=== PATIENT | female | born 1955 | race Caucasian/White ===

== ENCOUNTER → 2017-07-09 | Outpatient (REF) ==
[2017-07-09 14:20] LABS: RUBELLA IgG QUALITATIVE SUSCEPTIBLE (IMMUNE)
== END ==
LOC: M LAB 12:38
DX: Z01.84 Encounter for antibody response examination (principal)

== ENCOUNTER → 2018-10-26 | Outpatient (CLI) | payer BC ==
[2018-10-26 09:11] LABS: APPEARANCE, URINE CLEAR (CLEAR); BACTERIA, URINE AUTO NEGATIVE (NEGATIVE); BILIRUBIN, URINE AUTO NEGATIVE (NEGATIVE); BLOOD, URINE BLOOD NEGATIVE (NEGATIVE); COLOR, URINE YELLOW (YELLOW); GLUCOSE, URINE (UA) AUTO NEGATIVE (NEGATIVE); KETONE, URINE AUTO NEGATIVE (NEGATIVE); LEUKOCYTE ESTERASE, URINE AUTO NEGATIVE (NEGATIVE); MUCUS, URINE SMALL (NEGATIVE); NITRITE, URINE AUTO NEGATIVE (NEGATIVE); PROTEIN, URINE AUTO NEGATIVE (NEGATIVE); RBC, URINE AUTO 1 /HPF (0-3); SPECIFIC GRAVITY URINE AUTO 1.027 (1.002-1.035); SQUAMOUS EPITHELIAL CELL UR AU 1 /HPF (0-6); WBC, URINE AUTO 2 /HPF (0-3)
[2018-10-26 09:14] LABS: ALBUMIN 3.8 GM/DL (3.2-5.2); ALT/SGPT 16 U/L (12-78); BILIRUBIN,TOTAL 0.4 MG/DL (0.2-1.0); BLOOD UREA NITROGEN 18 MG/DL (7-18); CARBON DIOXIDE LEVEL 31 MEQ/L (21-32); CHLORIDE LEVEL 105 MEQ/L (98-107); CHOLESTEROL LEVEL 276 MG/DL (<200); GLOMERULAR FILTRATION RATE > 60.0 (>45); GLUCOSE, FASTING 86 MG/DL (70-100); HDL CHOLESTEROL 75 MG/DL (>40); LDL CHOLESTEROL 176.2 MG/DL (<100); NON-HDL-C 201 MG/DL; POTASSIUM SERUM 3.8 MEQ/L (3.5-5.1); SODIUM LEVEL 142 MEQ/L (136-145); TOTAL PROTEIN 7.1 GM/DL (6.4-8.2); TRIGLYCERIDES LEVEL 124 MG/DL (<150)
== END ==
LOC: M LAB 07:35
PROVIDERS: ATTEND Family Medicine
DX: Z13.220 Encounter for screening for lipoid disorders (principal); Z13.1 Encounter for screening for diabetes mellitus; Z11.59 Encounter for screening for other viral diseases; R35.0 Frequency of micturition
CPT/HCPCS: 36415; 80053; 80061; 81001; 87086; G0472

== ENCOUNTER → 2018-11-04 | Outpatient (CLI) | payer BC ==
--- NOTE | 2018-11-11 17:02 | REP ---
BILATERAL MAMMOGRAM AND 3D TOMOSYNTHESIS: No prior studies are available for comparison. There is no family history of [facility] cancer[facility] lifetime risk of breast cancer 8.2%. MLO and CC views of both breasts performed with 3D tomosynthesis. There is dense heterogeneous fibroglandular tissue bilaterally, limiting the sensitivity of the mammogram. There is a suggestion of an oval 11 mm nodular opacity posteriorly and medially in the right breast, better seen on the tomographic images, particularly on the CC view. I see no other definite mass or nodule bilaterally. No suspicious clusters of microcalcifications are seen. IMPRESSION: ACR 0 incomplete. Suspect oval 11 mm nodule medial posterior right breast. Recommend spot compression views and ultrasound to further evaluation. BIRADS 0: BI-RADS/ACR category 0 mammogram, Incomplete: Need additional imaging evaluation and/or prior mammograms for comparison. This mammogram was interpreted with the aid of an FDA-approved computer-aided detection system. The patient states she/he has not had a clinical breast exam in over a year. The patient letter being requested is M0.
== END ==
LOC: M WHC 07:39
PROVIDERS: ATTEND Family Medicine
DX: Z12.31 Encounter for screening mammogram for malignant neoplasm of breast (principal); N63.10 Unspecified lump in the right breast, unspecified quadrant

== ENCOUNTER → 2019-01-01 | Outpatient (REF) | payer BC ==
[2019-01-05 14:32] LABS: HPV HYBRID CAPTURE II Negative (Negative)
== END ==
LOC: M SFHCPLAZ 09:34
PROVIDERS: ATTEND Family Medicine
DX: Z12.4 Encounter for screening for malignant neoplasm of cervix (principal)
CPT/HCPCS: 87624; G0123

== ENCOUNTER → 2019-02-11 | Outpatient (CLI) | payer BC ==
--- NOTE | 2019-02-17 15:54 | DEXA ---
AP SPINE L1 - L4 1.077 -0.9 0.6 LT FEMUR TOTAL 0.806 -1.6 -0.4 LT NECK 0.699 -2.4 -1.0 RT FEMUR TOTAL 0.799 -1.7 -0.5 RT NECK 0.672 -2.6 -1.2 TOTAL BODY TOTAL OTHER COMMENTS: Normal bone densitometry of the spine. There is low bone density of the left hip. There is osteoporosis of the right hip. FOLLOW-UP: Recommendation for the next bone density exam: 2 years. OSMANI
== END ==
LOC: M WHC 12:49
PROVIDERS: ATTEND Family Medicine
DX: M81.0 Age-related osteoporosis without current pathological fracture (principal)

== ENCOUNTER → 2019-03-26 | Outpatient (REF) | payer BC ==
[2019-03-26 12:10] LABS: BLOOD UREA NITROGEN 16 MG/DL (7-18); CALCIUM LEVEL 9.2 MG/DL (8.8-10.2); CARBON DIOXIDE LEVEL 30 MEQ/L (21-32); CHLORIDE LEVEL 105 MEQ/L (98-107); GLOMERULAR FILTRATION RATE > 60.0 (>45); GLUCOSE, FASTING 76 MG/DL (70-100); POTASSIUM SERUM 4.9 MEQ/L (3.5-5.1); SODIUM LEVEL 141 MEQ/L (136-145)
[2019-03-26 12:14] LABS: TOTAL 25(OH) VITAMIN D 15.6 NG/ML (30.0-100.0)
== END ==
LOC: M SFHCPLAZ 09:57
PROVIDERS: ATTEND Family Medicine
DX: Z12.11 Encounter for screening for malignant neoplasm of colon (principal); M81.0 Age-related osteoporosis without current pathological fracture

== ENCOUNTER → 2019-05-10 | Outpatient (REF) | payer BC | LOC: M SFHCPLAZ 12:16 | PROVIDERS: ATTEND Family Medicine | DX: Z12.4 Encounter for screening for malignant neoplasm of cervix (principal) | CPT/HCPCS: 87624; G0123 ==

== ENCOUNTER → 2019-05-31 | Outpatient (CLI) | payer BC, SELFPAY ==
--- NOTE | 2019-05-31 12:27 | REP ---
UNILATERAL MAMMOGRAM RIGHT BREAST WITH 3-D TOMOSYNTHESIS: HISTORY: 6 month followup mammogram to study of 11/04/2018 and 11/23/2018. No family history of breast cancer. [facility] lifetime risk of breast cancer at 7.9%. MLO, CC and ML views of the right breast are performed with 3-D tomosynthesis. The 11/04/2018 study showed a possible nodular density in the right breast which could not be reproduced on the additional images performed on 11/23/2018. Today's images show moderately dense fibroglandular tissue. Once again the suspected nodular density posteromedially in the right breast on the 11/13/2018 exam cannot be seen or reproduced on today's images. I see no evidence of mass, architectural distortion or clustered microcalcifications. IMPRESSION: BIRADS 2: BI-RADS/ACR category 2 mammogram. Benign Findings. No evidence of mass or nodule on today's views. Recommend routine followup bilateral mammogram in November 2019. This mammogram was interpreted with the aid of an FDA-approved computer-aided detection system. The patient states he/she had a clinical breast exam in 02/2019. The patient letter being requested is M1. Electronically Signed by Aj Barth MD 05/31/2019 02:56 P
== END ==
LOC: M RAD 09:27
PROVIDERS: ATTEND Family Medicine
DX: R92.8 Other abnormal and inconclusive findings on diagnostic imaging of breast (principal)
CPT/HCPCS: 77065; G0279

== ENCOUNTER → 2020-06-07 | Outpatient (CLI) | payer BC ==
--- NOTE | 2020-06-07 11:34 | REPMRS ---
Patient History The patient states she has not had a clinical breast exam in over a year. No known family history of cancer. Digital Woman Screen Mammo: June 07, 2020 - Exam #: [id number] Bilateral CC and MLO view(s) were taken. Technologist: Maryjo Boyer, Technologist Prior study comparison: May 31, 2019, right breast digital mammo diagnostic unilateral, performed at [facility]. November 23, 2018, right breast digital mammo diagnostic unilateral, performed at [facility]. November 05, 2018, bilateral digital woman screen mammo performed at [facility]. FINDINGS: The breast tissue is heterogeneously dense. This may lower the sensitivity of mammography. The Volpara volumetric breast density category is: C. There is a moderate amount of heterogeneously dense fibroglandular tissue which is fairly symmetric. There is no interval development of dominant mass, architectural distortion, or grouped microcalcification typical of malignancy. There has been no change in the appearance of the mammogram from the prior studies. 3-D tomosynthesis shows no additional findings. Assessment: BI-RADS/ACR category 1 mammogram. Negative Mammogram. Recommendation Routine screening mammogram of both breasts in 1 year (for women over age 40). This patient's [facility] Lifetime Breast Cancer RIsk is estimated at 7.5 %. This mammogram was interpreted with the aid of an FDA-approved computer-aided dectection system. Electronically Signed By: Parrish Mccarthy MD 06/07/20 [id number]
== END ==
LOC: M WHC 09:30
PROVIDERS: ATTEND Family Medicine
DX: Z12.31 Encounter for screening mammogram for malignant neoplasm of breast (principal)

== ENCOUNTER → 2020-10-11 | Outpatient (CLI) | payer BC ==
--- NOTE | 2020-10-12 02:43 | REPPI ---
INDICATION: PAIN OF FEMAL SYMPHYSIS PUBIS. COMPARISON: None. TECHNIQUE: AP and bilateral oblique views of the sacroiliac joints (4 total images). FINDINGS: Sacroiliac joints appear relatively symmetric, age-appropriate and without significant periarticular sclerosis, erosive changes, or fusion. IMPRESSION: Essentially symmetric age-appropriate bilateral sacroiliac joints. <Electronically signed by Gilles Amor > 10/12/20 [id number]
--- NOTE | 2020-10-12 03:37 | REPPI ---
INDICATION: PAIN OF FEMAL SYMPHYSIS PUBIS. COMPARISON: None. TECHNIQUE: Frontal view of the pelvis with neutral and frog-lateral views of the bilateral hips. FINDINGS: The osseous structures are intact and there is no evidence for acute fracture or dislocation. The pelvis and bilateral hip joints demonstrate relatively symmetric mild age-related degenerative changes. Hip joints include minimal increased sclerosis along the acetabular roof with mild joint space narrowing. IMPRESSION: Relatively symmetric age-related degenerative changes. <Electronically signed by Gilles Amor > 10/12/20 [id number]
== END ==
LOC: M PLAIMG 12:27
PROVIDERS: ATTEND Family Medicine
DX: N94.9 Unspecified condition associated with female genital organs and menstrual cycle (principal); R10.2 Pelvic and perineal pain

== ENCOUNTER → 2021-03-06 | Outpatient (RCR) | LOC: M EMP 02-10 06:00 | PROVIDERS: ATTEND Family Medicine | DX: Z53.8 Procedure and treatment not carried out for other reasons (principal) ==

== ENCOUNTER → 2021-07-10 | Outpatient (REF) ==
[2021-07-10 13:55] LABS: RSV AMPLIFICATION POSITIVE (NEGATIVE)
== END ==
LOC: M EMP 12:47
PROVIDERS: ATTEND Family Medicine
DX: Z20.822 Contact with and (suspected) exposure to COVID-19 (principal)

== ENCOUNTER → 2021-12-11 | Outpatient (CLI) | payer BC ==
[2021-12-11 08:29] LABS: ALBUMIN 3.5 GM/DL (3.2-5.2); ALT/SGPT 11 U/L (12-78); BILIRUBIN,TOTAL 0.4 MG/DL (0.2-1.0); BLOOD UREA NITROGEN 18 MG/DL (7-18); CALCIUM LEVEL 9.5 MG/DL (8.8-10.2); CARBON DIOXIDE LEVEL 31 MEQ/L (21-32); CHLORIDE LEVEL 110 MEQ/L (98-107); CHOLESTEROL LEVEL 244 MG/DL (<200); CHOLESTEROL RISK RATIO 3.253 (<5); CREATININE FOR GFR 0.74 MG/DL (0.55-1.30); GLOMERULAR FILTRATION RATE > 60.0 (>45); GLUCOSE, FASTING 92 MG/DL (70-100); HDL CHOLESTEROL 75 MG/DL (>40); LDL CHOLESTEROL 153 MG/DL (<100); NON-HDL-C 169 MG/DL; POTASSIUM SERUM 4.4 MEQ/L (3.5-5.1); SODIUM LEVEL 144 MEQ/L (136-145); TOTAL PROTEIN 7.1 GM/DL (6.4-8.2); TRIGLYCERIDES LEVEL 81 MG/DL (<150)
[2021-12-11 08:58] LABS: TOTAL 25(OH) VITAMIN D 20.6 NG/ML (30.0-100.0)
== END ==
LOC: M LAB 07:20
PROVIDERS: ATTEND Family Medicine
DX: Z12.11 Encounter for screening for malignant neoplasm of colon (principal); Z13.220 Encounter for screening for lipoid disorders; Z13.1 Encounter for screening for diabetes mellitus

== ENCOUNTER → 2021-12-17 | Outpatient (REF) | payer BC | LOC: M LAB REF 16:55 | PROVIDERS: ATTEND Surgery | DX: L72.11 Pilar cyst (principal) ==